=== PATIENT | female | born 1985 | race Caucasian/White ===

== ENCOUNTER 2017-07-15 03:45 | Inpatient (IN) | payer SELFPAY ==
--- NOTE | 2017-07-15 04:27 | PCM.HP.OB ---
- Problem List (1) Active labor at term Status: Acute (2) Labor abnormality Status: Acute History Date of Admission: 07/15/17 Final JAGDISH: 06/25/17 Gestational age: 42 Weeks and 6 Days History of this : 31 yo @ 42w6d presents IAL with arrest of labor at 6 cam at home. 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 she denies any significant bleeding and denies complications although she has had minimal testing. Pertinent Past Medical History: negative PSH: negative OB history 3 previous postterm deliveries uncompicated 9-10lbs 5 ounces in weight, no difficulties in delivery. Current Medications Acetaminophen (Tylenol) 325 - 650 mg PO Q4H PRN PRN PRN Reason: PAIN OR FEVER >100.4F Al Hydroxide/Mg Hydroxide (Mylanta Ii) 15 - 30 ml PO Q4H PRN PRN PRN Reason: INDIGESTION Citric Acid/Sodium Citrate (Bicitra) 30 ml PO UD PRN Lactated Ringer's () 1,000 mls @ 50 mls/hr IV .Q20H ROXANNE Oxytocin/Sodium Chloride () 30 units in 500 mls @ 1 mls/hr IV .Q500H ROXANNE Nalbuphine HCl (Nubain) 5 - 10 mg IV Q3H PRN PRN PRN Reason: PAIN (4-10/10) Ondansetron HCl (Zofran) 4 mg IV Q8H PRN PRN PRN Reason: NAUSEA Promethazine HCl (Phenergan (Ll)) 6.25 - 12.5 mg IV Q4H PRN PRN; Protocol PRN Reason: IF NAUSEA PERSISTS Sodium Chloride () 5 - 15 ml IV UD [facility] Smoking Status: Never smoker Alcohol: None Drug Use: none Number of Fetus(es): 1 - fht 135 moderate variability reactive one variable toco q6 minutes Review of Systems Constitutional: Denies: Chills, Fever, Weight Change HEENT: Denies: Head Aches, Sinus Congestion, Sinus Drainage Cardiovascular: Denies: Chest Pain, Palpitations Respiratory: Denies: Cough, Shortness of breath at rest, Sputum production Gastrointestinal: Reports: Nausea. Denies: Abdominal Pain, Vomiting Genitourinary: Denies: Dysuria Musculoskeletal: Denies: Joint Pain, Joint Tenderness Skin: Denies: Rash, Wounds Neurological: Denies: Numbness, Tingling, Focal weakness Psychiatric: Denies: Anxiety, Depression, Homicidal Ideations, Suicidal Ideations Hematologic/ Lymphatic: Denies: Easy Bruising, Easy Bleeding Physical Exam General: Alert, Oriented x3, No apparent distress Cardiovascular: Regular rate Lungs: Normal air movement Abdomen: Soft, Non Tender, Gravid Estimated gestational size: Large for gestational age Presentation: Cephalic Cervix Dilation (cm): 6 Station: -1 Effacement (%): 80 Assessment/Plan Active and Suspected Problems Active labor at term (Acute) Labor abnormality (Acute) 31 yo @ 42w6d presents IAL with protraction of labor- recommend pitocin augmentation. discussed LGA likelihood, bedside limited ultrasound done unable to get accurate measurement due to head position and lack of fluid. spontaneous movement and breathing seen and BPD measuring 40w5d. gbs unknown- check rapid, start antibiotics if signs of chorio or positive rapid strep. limited care- ordered basic panel
[2017-07-15 04:38] VITALS: BMI 40.9
--- NOTE | 2017-07-15 04:38 | HP.PCM_ITS ---
- Problem List (1) Active labor at term Status: Acute (2) Labor abnormality Status: Acute History Date of Admission: 07/15/17 Final JAGDISH: 06/25/17 Gestational age: 42 Weeks and 6 Days History of this : 31 yo @ 42w6d presents IAL with arrest of labor at 6 cam at home. 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 she denies any significant bleeding and denies complications although she has had minimal testing. Pertinent Past Medical History: negative PSH: negative OB history 3 previous postterm deliveries uncompicated 9-10lbs 5 ounces in weight, no difficulties in delivery. Current Medications Acetaminophen (Tylenol) 325 - 650 mg PO Q4H PRN PRN PRN Reason: PAIN OR FEVER >100.4F Al Hydroxide/Mg Hydroxide (Mylanta Ii) 15 - 30 ml PO Q4H PRN PRN PRN Reason: INDIGESTION Citric Acid/Sodium Citrate (Bicitra) 30 ml PO UD PRN Lactated Ringer's () 1,000 mls @ 50 mls/hr IV .Q20H ROXANNE Oxytocin/Sodium Chloride () 30 units in 500 mls @ 1 mls/hr IV .Q500H ROXANNE Nalbuphine HCl (Nubain) 5 - 10 mg IV Q3H PRN PRN PRN Reason: PAIN (4-10/10) Ondansetron HCl (Zofran) 4 mg IV Q8H PRN PRN PRN Reason: NAUSEA Promethazine HCl (Phenergan (Ll)) 6.25 - 12.5 mg IV Q4H PRN PRN; Protocol PRN Reason: IF NAUSEA PERSISTS Sodium Chloride () 5 - 15 ml IV UD [facility] Smoking Status: Never smoker Alcohol: None Drug Use: none Number of Fetus(es): 1 - fht 135 moderate variability reactive one variable toco q6 minutes Review of Systems Constitutional: Denies: Chills, Fever, Weight Change HEENT: Denies: Head Aches, Sinus Congestion, Sinus Drainage Cardiovascular: Denies: Chest Pain, Palpitations Respiratory: Denies: Cough, Shortness of breath at rest, Sputum production Gastrointestinal: Reports: Nausea. Denies: Abdominal Pain, Vomiting Genitourinary: Denies: Dysuria Musculoskeletal: Denies: Joint Pain, Joint Tenderness Skin: Denies: Rash, Wounds Neurological: Denies: Numbness, Tingling, Focal weakness Psychiatric: Denies: Anxiety, Depression, Homicidal Ideations, Suicidal Ideations Hematologic/ Lymphatic: Denies: Easy Bruising, Easy Bleeding Physical Exam General: Alert, Oriented x3, No apparent distress Cardiovascular: Regular rate Lungs: Normal air movement Abdomen: Soft, Non Tender, Gravid Estimated gestational size: Large for gestational age Presentation: Cephalic Cervix Dilation (cm): 6 Station: -1 Effacement (%): 80 Assessment/Plan Active and Suspected Problems Active labor at term (Acute) Labor abnormality (Acute) 31 yo @ 42w6d presents IAL with protraction of labor- recommend pitocin augmentation. discussed LGA likelihood, bedside limited ultrasound done unable to get accurate measurement due to head position and lack of fluid. spontaneous movement and breathing seen and BPD measuring 40w5d. gbs unknown- check rapid, start antibiotics if signs of chorio or positive rapid strep. limited care- ordered basic panel
[2017-07-15] MEDS: Lactated Ringers 1,000 ML 50 ML IV ×2 (04:50→09:10)
[2017-07-15 05:13] LABS: Mucous, Urine 0 SEEN /hpf (<or=2+)
[2017-07-15 05:24] LABS: Absolute Lymphocyte Count 1.72 X10^3/ul (0.83-4.51); Absolute Neutrophil Count 11.1 X10^3/uL (2.0-7.7); Basophil# 0.01 X10^3/uL; Basophil% 0.1 % (0-1); Eosinophil# 0.02 X10^3/uL; Eosinophils% 0.1 % (0-5); Hematocrit 34.8 % (37-47); Hemoglobin 11.5 g/dl (12.0-15.0); Lymphocyte # 1.72 X10^3/ul (4.0); Lymphocyte % 12.5 % (19-41); Mean Corpuscular Hgb 29.6 pg (27.0-32.0); Mean Corpuscular Volume 89.7 fL (81-99); Mean Platelet Vol. 10.4 fl (6.2-12.0); Monocyte# 0.85 X10^3/uL; Monocyte% 6.2 % (0-10); Neutrophil # 11.09 X10^3/uL (2.7-7.7); Neutrophil % 80.7 % (47-70); Platelet Count 168 K/mm3 (150-450); RBC Distribution Width CV 15.3 % (11.6-14.6); RBC Distribution Width SD 49.1 fl (35.1-43.9); Red Blood Count 3.88 M/mm3 (4.2-5.4); White Blood Count 13.7 K/mm3 (4.4-11.0)
[2017-07-15 05:25] LABS: POSITIVE COUNT NO; POSITIVE DIFFERENTIAL NO; POSITIVE MORPHOLOGY NO
[2017-07-15] MEDS: Oxytocin 30 units/NS 500 ml 30 UNITS/500 ML IV.SOLN IV (05:28)
[2017-07-15 05:46] LABS: Color, Urine Yellow (Yellow); Glucose, Dipstick Normal (Normal); Ketone-Dipstick 50 mg/dl (Negative); Leukocyte Esterase-Dipstick 500 /ul (Negative); Nitrite-Dipstick Negative (Negative); Occult Blood-Urine 50 /ul (Negative); Protein-Dipstick 30 mg/dl (Negative); Specific Gravity, Urine 1.005 (1.002-1.030); Urine Bilirubin Dipstick Negative (Negative); Urine Clarity Sl. Cloudy (Clear); Urine Urobilinogen Normal (Normal)
[2017-07-15 06:17] LABS: Bacteria 1+ /hpf (None Seen); Red Blood Cells-Urine 0-5 SEEN /hpf (0-5); Squamous Epithelial Cells - UA 5-10 SEEN /hpf (5-10); White Blood Cells 5-10 SEEN /hpf (0-5)
[2017-07-15 06:30] LABS: Group B Strep DNA By PCR Negative (Negative); Internal Control PASS; Probe Check PASS; Specimen Processing Control PASS
[2017-07-15 06:39] LABS: HIV - WCH Non-Reactive (Nonreactive)
[2017-07-15 07:09] LABS: Rapid Plasmin Reagin (RPR) NONREACTIVE (NONREACTIVE)
[2017-07-15 09:36] LABS: Chlamydia Trachomatis by PCR Negative (Negative); Neisserai gonorrhoeae by PCR Negative (Negative); Probe Check PASS; Sample Adequacy Control PASS; Specimen Processing Control PASS
[2017-07-15] MEDS: Oxytocin 30 units/NS 500 ml 30 UNITS/500 ML IV.SOLN 334 UNITS IV (09:44)
[2017-07-15] MEDS: Methylergonovine 0.2 MG/ML Ampul IM (10:20)
--- NOTE | 2017-07-15 10:23 | PCM.OB.VAG ---
- Problem List (1) Active labor at term Status: Acute (2) Labor abnormality Status: Acute Vaginal Delivery Maternal Presentation: Active Labor 42w6d ial protaction of labor Method of Induction: Pitocin Amniotic Membrane Rupture Type: Spontaneous at home Amniotic Fluid Description: Clear Final JAGDISH: 06/25/17 Gestational age: 42 Weeks and 6 Days Date of Procedure: 07/15/17 Pre-Operative Diagnosis: ial Post-Operative Diagnosis: same Surgery/ Procedure Performed: Spontaneous Vaginal Delivery Type of Anesthesia: Epidural Description of Procedure: Patient began pushing and delivered the head in the joaquin presentation. The head was delivered atraumatically . The anterior and posterior shoulders delivered without complication followed by the rest of the infant and the was placed on the maternal abdomen. Delayed cord clamping was employed for approximately 60 seconds. Cord was clamped and cut and gentle traction was applied to the cord and the placenta delivered spontaneously immediately following it was noted to be intact with three-vessel cord. The perineum and vagina were inspected and noted to have a small first-degree perineal laceration that was repaired in the usual fashion with 3-0 Vicryl repeat. EBL was 200 cc. Patient and tolerated delivery well. Presentation: JOAQUIN Placental Delivery Description: Spontaneous Placenta Disposition: [facility] Cord Vessel Description: 3 Vessels Cord Entanglement: None Estimated Blood Loss: 200 Infant A gender: Male Episiotomy Description: None Laceration: Perineal Extension/lac, 1st degree Medications given after delivery: IV Pitocin Complications: None
--- NOTE | 2017-07-15 10:25 | DCINST_ITS ---
Discharge Diet: No Restrictions Discharge Activity: Return to Normal Activity, May not drive while taking narcotic pain medications., May Shower May resume sexual activity in: 4-6 weeks Call your doctor if your incision/area has: Continuous Slow Oozing, Sudden Increased Bleeding, Increased Pain/ Swelling, Increased Redness, Foul Smelling Discharge Additional Instructions: If you experience any of the following, contact your healthcare provider. * Bleeding that soaks a pad every hour for 2 hours * Fever 100.4 or higher * Unrelieved incision or abdominal pain * Swelling, redness, discharge or bleeding from your incision or episiotomy site * Your incision begins to separate * Problems urinating (including inability to urinate or burning while urinating) . * Visual changes * Severe headache * Flu-like symptoms * Pain or redness in one of both of your breasts * Pain, warmth, tenderness or swelling in your legs, especially the calf area * Frequent nausea and vomiting * Symptoms of depression or anxiety If you experience any of the following, call 911 or go to the nearest Emergency Room. * Chest pain * Problems breathing * Seizure activity * Partial or complete paralysis of a body part, slurred speech, weakness or drooping of the face, or a sudden inability to walk or hold your balance Allergies/Adverse Reactions: Allergies No Known Allergies Allergy (Verified 07/15/17 04:34) Please Follow Up With: Mallory Sparks MD - [phone] When: Call to make an appointment with your doctor in 6 weeks. If you had elevated Blood pressure or 4th degree laceration you will need to be seen in 2 weeks.
--- NOTE | 2017-07-15 10:25 | PCM.DCVAG ---
Discharge Diet: No Restrictions Discharge Activity: Return to Normal Activity, May not drive while taking narcotic pain medications., May Shower May resume sexual activity in: 4-6 weeks Call your doctor if your incision/area has: Continuous Slow Oozing, Sudden Increased Bleeding, Increased Pain/ Swelling, Increased Redness, Foul Smelling Discharge Additional Instructions: If you experience any of the following, contact your healthcare provider. Bleeding that soaks a pad every hour for 2 hours Fever 100.4 or higher Unrelieved incision or abdominal pain Swelling, redness, discharge or bleeding from your incision or episiotomy site Your incision begins to separate Problems urinating (including inability to urinate or burning while urinating). Visual changes Severe headache Flu-like symptoms Pain or redness in one of both of your breasts Pain, warmth, tenderness or swelling in your legs, especially the calf area Frequent nausea and vomiting Symptoms of depression or anxiety If you experience any of the following, call 911 or go to the nearest Emergency Room. Chest pain Problems breathing Seizure activity Partial or complete paralysis of a body part, slurred speech, weakness or drooping of the face, or a sudden inability to walk or hold your balance Allergies/Adverse Reactions: Allergies No Known Allergies Allergy (Verified 07/15/17 04:34) Please Follow Up With: Mallory Sparks MD - [phone] When: Call to make an appointment with your doctor in 6 weeks. If you had elevated Blood pressure or 4th degree laceration you will need to be seen in 2 weeks.
[2017-07-15 10:59] LABS: Rubella IgG 2.7 IU/mL
[2017-07-15 15:43] VITALS: BP 121/66; PULSE 63; RESP 18; TEMP 36.8
--- NOTE | 2017-07-15 15:52 | NURSING ---
pt emptied bladder before fundal check. States she carried baby mostly on right side Fundus firm, right of midline. will continue to monitor
[2017-07-15 22:20] VITALS: BP 141/80; PULSE 88; RESP 18; TEMP 36.8; O2SAT 95
[2017-07-16 01:42] VITALS: BP 131/62; PULSE 63; RESP 18; TEMP 36.4; O2SAT 96
[2017-07-16 04:14] VITALS: BP 123/72; PULSE 65; RESP 16; TEMP 36.8; O2SAT 97
--- NOTE | 2017-07-16 07:13 | PCM.PN.OB ---
Patient Problems: Active and Suspected Problems Active labor at term (Acute) Labor abnormality (Acute) Subjective: doing well no complaints - Physical Exam General: Alert, Oriented x3 Vital Signs Temp Pulse Resp BP Pulse Ox 98.3 F 65 16 123/72 H 97 07/16/17 04:14 07/16/17 04:14 07/16/17 04:14 07/16/17 04:14 07/16/17 04:14 Oxygen Delivery Method Room Air Weight: 269 lb 6 oz Body Mass Index (BMI) 40.9 Intake and Output for Last 24 Hours 07/14/17 07/15/17 07/16/17 23:59 23:59 23:59 Output Total 1350 / 1350 Balance -1350 / -1350 Laboratory Tests Past 24 Hrs 07/15/17 07/15/17 04:55 07:00 Chlam trachomat DNA PCR Negative N.gonorrhoeae DNA (PCR) Negative Rubella IgG Antibody 2.7 Assessment/Plan Active and Suspected Problems Active labor at term (Acute) Labor abnormality (Acute) s/p routine care doing well dc home
[2017-07-16 08:00] VITALS: BP 126/82; PULSE 69; RESP 16; TEMP 36.8; O2SAT 99
[2017-07-16] MEDS: Naproxen 250 MG Tablet 500 MG PO (09:18)
[2017-07-17 08:52] LABS: HEPATITIS B SURFACE AG Negative (Negative); Hep C Antibodies <0.1 s/co ratio (0.0-0.9)
== END 2017-07-16 12:45 | disposition home or self-care (01) | DRG 775 ==
PROVIDERS: Admitting Provider Obstetrics & Gynecology; Visit Provider Obstetrics & Gynecology
DX: O48.1 Prolonged pregnancy (principal); O36.63X0 Maternal care for excessive fetal growth, third trimester, not applicable or unspecified; O70.0 First degree perineal laceration during delivery; Z3A.49 Greater than 42 weeks gestation of pregnancy; Z37.0 Single live birth
CPT/HCPCS: 81001; 85025; 86592; 86703; 86762; 86803; 86850; 86900; 87081; 87340; 87491; 87591; 87653; 99218; J7120; G0378